=== PATIENT | male | born 1945 | race Caucasian/White ===

== ENCOUNTER → 2024-08-15 15:55 | Outpatient (BNVA) | payer OTHER, SELFPAY | PROVIDERS: Visit Provider Orthopaedic Surgery | DX: M54.9 Dorsalgia, unspecified (principal); M54.50 Low back pain, unspecified; G89.29 Other chronic pain | CPT/HCPCS: 72072; 72110; 99204 ==

== ENCOUNTER → 2024-11-05 08:42 | Outpatient (BNVA) | payer OTHER, SELFPAY | PROVIDERS: Referring Provider Anesthesiology Pain Medicine; Visit Provider Orthopaedic Surgery | DX: M54.41 Lumbago with sciatica, right side (principal); M54.42 Lumbago with sciatica, left side; G89.29 Other chronic pain; M54.9 Dorsalgia, unspecified | CPT/HCPCS: 36415; 72070; 72110; 80053; 81001; 85025; 99214 ==

== ENCOUNTER 2024-11-18 06:39 | Day surgery (SDC) | payer OTHER, SELFPAY ==
[2024-11-18] VITALS (13 sets, daily range): BP systolic 100–174; BP diastolic 45–85; PULSE 56–70; RESP 13–24; TEMP 36.1–36.8; O2SAT 92–99; BMI 27.5
[2024-11-18] MEDS: sodium chloride 0.9% 1,000 ML 30 ML IV (07:00)
--- NOTE | 2024-11-18 08:21 | W.PM.OPSUD ---
Surgery/Procedure H&P Update DATE OF PROCEDURE: November 18, 2024 DATE H&P PERFORMED: 11/05/24 H&P UPDATE INFORMATION: I have reviewed H&P completed within last 30 days, I have examined patient prior to procedure and No changes to prior documentation PREOP DIAGNOSIS: Lumbar stenosis with neurogenic claudication PLANNED PROCEDURE: Operation Date: 11/18/24 08:45 Proposed Procedures p Padal revision and placement(Not Applicable) - Braxton Meng DO s Stimulator Exchange Stimulator Generator Exchange(Not Applicable) - Braxton Meng DO
--- NOTE | 2024-11-18 08:45 | ANES.PREANE2 ---
Pre-Anesthetic Assessment Height/Weight: Height 1.91 m Weight 99.79 kg Temp Pulse Resp BP Pulse Ox O2 Del Method 97.0 F L 63 17 125/79 93 Room Air 11/18/24 11:17 11/18/24 11:30 11/18/24 11:51 11/18/24 11:30 11/18/24 11:30 11/18/24 11:30 Preop Diagnosis: Lumbar stenosis with neurogenic claudication Operation Date: 11/18/24 08:45 Proposed Procedures p Padal revision and placement(Not Applicable) - Braxton Meng DO s Stimulator Exchange Stimulator Generator Exchange(Not Applicable) - Braxton Meng DO Familial anesthetic complications: None Last intake: Intake Last Liquid Date 11/17/24 Last Liquid Time 17:00 Last Solid Date 11/17/24 Last Solid Time 20:00 Exam alert, oriented x 3, clear to auscultation bilaterally and regular rate & rhythm CV/HEM Hypertension Anesthetic Plan ASA status: 2 Anesthesia: General Risk of > 500 ml blood loss (7ml/kg in children): No Medications/Allergies Home Medications Medication Instructions Recorded Confirmed Last Taken Type ibuprofen 800 mg PO DAILY PRN Pain 11/14/24 11/14/24 Unknown History losartan 100 mg PO DAILY 11/14/24 11/18/24 11/17/24 History hydrocodone 5 mg-acetaminophen 325 1 - 2 tab PO .Q4-6H #40 tabs 11/18/24 Unknown Rx mg tablet Allergies Allergy/AdvReac Type Severity Reaction Status Date / Time No Known Allergies Allergy Unverified 08/15/24 16:12 [facility] Anesthesia Social History Smoking and tobacco/nicotine status: never used tobacco/nicotine Data Anesthesia Cardiac Studies: No Data to Display
[2024-11-18] MEDS: ceFAZolin 2,000 mg SDV 2000 MG IVP (09:00)
[2024-11-18] MEDS: VANCOMYCIN ADD-Vantage 1,000 MG VIAL 1000 MG XX (09:32)
[2024-11-18] MEDS: lidocaine-epi 1% 20 mL INJ INJECTION (09:32)
--- NOTE | 2024-11-18 10:21 | XR_ITS ---
WS: [id number] C-ARM RADIOGRAPHS THORACIC SPINE; 3 IMAGES HISTORY: OR PICS COMPARISON: None available. Intraoperative imaging during orthopedic procedure. There is a dorsal column stimulator present. This procedure may have been a revision as the electrodes appear different. XR/XR thoracic spine 2V [id number] IMPRESSION: Intraoperative imaging during orthopedic procedure.
--- NOTE | 2024-11-18 10:41 | PM.OP ---
Operative Report Date of procedure: November 18, 2024 Pre-op diagnosis: Lumbar stenosis with neurogenic claudication Post-op diagnosis: same Procedure done: 1. Removal of percutaneous neurostimulator leads 2. Removal of neurostimulator battery 3. Placement of neurostimulator paddle with laminectomy 4. Placement of new neurostimulator battery Surgeon: Braxton Meng DO Estimated blood loss (mL): 10 Procedure: 1. Removal of percutaneous neurostimulator leads 2. Removal of neurostimulator battery 3. Placement of neurostimulator paddle with laminectomy 4. Placement of new neurostimulator battery Patient was brought to the op suite after undergoing anesthesia was placed in the prone position. All areas impingement well-padded. Patient's prepped draped in also fashion. Skin incisions made over the battery. The battery is identified and removed. One of the leads going to the battery was frayed. The battery was then removed wires were cut. Next attention was brought to where the percutaneous leads were placed. They are sutured into the soft tissue. The incision points. Identified and removed the percutaneous leads were then pulled. These wires were then pulled through and all the wires were removed. Next tension was brought to placing the neurostimulator paddle. This was done by identifying the T9-10 level. This was done under C-arm guidance. The subperiosteal dissection was made down the spinous process after cutting through the thoracolumbar fascia and out to the transverse processes of T9-T10. Laminectomy was done at T9 and this was done by using a rongeur. The rongeur was used to take down the spinous process. Laminectomies were using high-speed bur curved curettes and Kerrison rongeurs. Ligamentum flavum was taken down. Next the passer was used the next the neurostimulator paddle was placed. Was taken over to the left side slightly. They were try to get it to do more of a laminectomy on the right but it would not pass on the right side as far as I like however we did get it up to the T7 vertebrae more just slightly to the left side. This point AP lateral fluoroscopy ensured where the position of bowel was. Next the wires were sutured to the spinous process of T10. Next tension was brought to placing the battery in the pouch. The incision that was already open for the previous battery the wire passer was passed subcu to the location of the laminectomy site. Wires were then passed through. And then attached to the battery. They are all found to be functional. Batteries then placed back into the wound where the battery pouch was made. Wounds were then irrigated vancomycin powder was placed and wounds were closed in layered fashion with Vicryl and Monocryl suture. Sterile dressings were applied patient was transferred to the PACU in stable condition.
[2024-11-18] MEDS: fentaNYL 50 mcg/mL INJ 2mL IVP (11:00)
[2024-11-18] MEDS: morphine 4 mg/mL SDV 1 mL IVP (11:51)
[2024-11-18] MEDS: HYDROcodone-acetaminophen 5-325 mg Tablet 1 TAB PO (11:52)
--- NOTE | 2024-11-18 12:30 | ANE.PACU2 ---
Inpatient post-anesthesia follow up: Airway intact: Yes Vital signs: Temperature 97.0 F Pulse Rate 63 Respiratory Rate 17 Blood Pressure 125/79 Pulse Oximetry 93 Oxygen Delivery Me thod Room Air Oxygen Flow Rate Fraction of Inspir ed Oxygen Hydration adequate: Yes Nausea and vomiting: No Pain level: 1 Mental status: Baseline
== END 2024-11-18 12:30 | disposition home or self-care (01) ==
PROVIDERS: PCP Family Medicine; Visit Provider Orthopaedic Surgery
PROC: (CPT 63685; principal; 2024-11-18 08:05)
PROC: (CPT 63664; 2024-11-18 08:05)
DX: M48.062 Spinal stenosis, lumbar region with neurogenic claudication (principal); I10 Essential (primary) hypertension; Z79.899 Other long term (current) drug therapy
CPT/HCPCS: 63664; 63688; 72070; 76000; C1778; C1820; J0131; J0690; J1100; J2270; J2405; J2704; J2710; J3010; J3370; J3490; J7030

== ENCOUNTER → 2024-12-03 08:26 | Outpatient (BNVA) | payer OTHER, SELFPAY | PROVIDERS: PCP Family Medicine; Visit Provider Orthopaedic Surgery | DX: Z48.89 Encounter for other specified surgical aftercare (principal) | CPT/HCPCS: 99024 ==

== ENCOUNTER → 2025-02-04 07:42 | Outpatient (BNVA) | payer OTHER, SELFPAY | PROVIDERS: PCP Family Medicine; Referring Provider Family Medicine; Visit Provider Nurse Practitioner Family | DX: M54.16 Radiculopathy, lumbar region (principal) | CPT/HCPCS: 99214 ==

== ENCOUNTER → 2025-02-11 12:26 | Outpatient (BNVA) | payer OTHER, SELFPAY | PROVIDERS: PCP Family Medicine; Visit Provider Nurse Practitioner Family | DX: M79.10 Myalgia, unspecified site (principal); M54.16 Radiculopathy, lumbar region | CPT/HCPCS: 20553; 99214; J1010; J3490 ==

== ENCOUNTER → 2025-02-26 09:22 | Outpatient (BNVA) | payer OTHER, SELFPAY | PROVIDERS: PCP Family Medicine; Visit Provider Nurse Practitioner Family | DX: M54.16 Radiculopathy, lumbar region (principal) | CPT/HCPCS: 99214 ==

== ENCOUNTER → 2025-03-26 09:31 | Outpatient (BNVA) | payer OTHER, SELFPAY | PROVIDERS: PCP Family Medicine; Visit Provider Nurse Practitioner Family | DX: M54.50 Low back pain, unspecified (principal); M54.9 Dorsalgia, unspecified; M54.16 Radiculopathy, lumbar region | CPT/HCPCS: 99214 ==

== ENCOUNTER 2025-04-02 07:40 | Outpatient (CLI) | payer OTHER, SELFPAY ==
--- NOTE | 2025-04-02 08:00 | CTR_ITS ---
PROCEDURE INFORMATION: Exam: CT Lumbar Spine With Contrast Exam date and time: 04/02/2025 8:38 AM Age: 79 years old Clinical indication: Low back pain; Prior surgery; Surgery date: 6+ months; Surgery type: Nerve stimulator; Additional info: M54.50 - low back pain, unspecified TECHNIQUE: Imaging protocol: Computed tomography of the lumbar spine with contrast. Radiation optimization: All CT scans at this facility use at least one of these dose optimization techniques: automated exposure control; mA and/or kV adjustment per patient size (includes targeted exams where dose is matched to clinical indication); or iterative reconstruction. Contrast material: OMNI 350; Contrast volume: 100 ml; Contrast route: INTRAVENOUS (IV); COMPARISON: CR XR lumbar spine min 4V [id number] 11/05/2024 8:48 AM RADIATION DOSE METRICS: Total DLP (mGy-cm): 628.04 FINDINGS: Bones/joints: There is widening of the disc spaces at L2-L3 and at L4-L5. Large cysts or erosions are present at the abutting endplates. The findings could all be due to degenerative disc disease but osteomyelitis and discitis could be present. MR recommended for further evaluation. Disc space narrowing and spurring L3-L4 and L5-S1. Partial lumbarization of S1. Soft tissues: Unremarkable. CT/CT lumbar spine w con [id number] IMPRESSION: Extensive degenerative disc disease with findings at 2 levels that could represent discitis and osteomyelitis. MR recommended for further evaluation.
[2025-04-02] MEDS: iohexol 350 mg/mL 500 mL Btl (per mL) IV (08:44)
[2025-04-02 08:47] LABS: Blood Urea Nitrogen 7 mg/dL (8-23)
== END 2025-04-02 07:41 | disposition home or self-care (01) ==
PROVIDERS: Radiology Diagnostic Radiology; PCP Family Medicine; Visit Provider Nurse Practitioner Family
DX: M51.369 Other intervertebral disc degeneration, lumbar region without mention of lumbar back pain or lower extremity pain (principal); R93.7 Abnormal findings on diagnostic imaging of other parts of musculoskeletal system; M85.68 Other cyst of bone, other site; M51.379 Other intervertebral disc degeneration, lumbosacral region without mention of lumbar back pain or lower extremity pain; M25.78 Osteophyte, vertebrae
CPT/HCPCS: 72132; 82565; 84520

== ENCOUNTER → 2025-04-07 09:03 | Outpatient (BNVA) | payer OTHER, SELFPAY | PROVIDERS: PCP Family Medicine; Visit Provider Nurse Practitioner Family | DX: M54.16 Radiculopathy, lumbar region (principal) | CPT/HCPCS: 99214 ==

== ENCOUNTER → 2025-07-08 08:02 | Outpatient (BNVA) | payer OTHER, SELFPAY | PROVIDERS: PCP Family Medicine; Visit Provider Nurse Practitioner Family | DX: M54.9 Dorsalgia, unspecified (principal); M54.16 Radiculopathy, lumbar region | CPT/HCPCS: 99214 ==

== ENCOUNTER → 2025-07-23 09:13 | Outpatient (BNVA) | payer OTHER, SELFPAY | PROVIDERS: PCP Family Medicine; Visit Provider Anesthesiology Pain Medicine | DX: M47.816 Spondylosis without myelopathy or radiculopathy, lumbar region (principal) | CPT/HCPCS: 64493; 64494; 64495; J3490; J9999 ==

== ENCOUNTER → 2025-08-06 09:40 | Outpatient (BNVA) | payer OTHER, SELFPAY | PROVIDERS: PCP Family Medicine; Visit Provider Nurse Practitioner Family | DX: M25.561 Pain in right knee (principal); M25.571 Pain in right ankle and joints of right foot; M54.16 Radiculopathy, lumbar region; M54.9 Dorsalgia, unspecified | CPT/HCPCS: 73562; 73610; 99214 ==

== ENCOUNTER 2025-08-12 06:39 | Outpatient (CLI) | payer OTHER, SELFPAY ==
--- NOTE | 2025-08-12 07:00 | CT_ITS ---
WS: [id number] CT LUMBAR SPINE, noncontrast. HISTORY: M54.16 - Radiculopathy, lumbar region TECHNIQUE: Contiguous 2.0 mm axial imaging are performed. Sagittal and coronal reformats are submitted and reviewed. All CT scans at [facility] use at least one of these dose optimization techniques: automated exposure control; mA and/or kV adjustment per patient size (includes targeted exams where dose is matched to clinical indication); or iterative reconstruction. IV contrast: None DLP: 615.37 mGy.cm COMPARISON: 04/02/2025 Retrolisthesis of L2 and L3 by 3 to 4 mm. L4 retrolisthesis by 2 mm. Severe degenerative disc space narrowing and desiccation throughout the lumbar spine. Erosions and mild osseous destruction along the endplates of L2-3 and L4-5 are similar to the prior study. No obvious progression. Numerous erosions and cystic changes are noted within the vertebral bodies from L2-L5. Severe disc space narrowing with bone upon bone at L3-4. These changes are very similar to the prior examination from 04/02/2025. No obvious progression. No inflammatory changes surrounding the vertebral bodies. L1-2: Asymmetric LEFT disc bulging. Bilateral foraminal osteophytes. Mild LEFT foraminal stenosis. L2-3: Diffuse annular disc bulging with osteophytic ridging and facet arthritis. Central and bilateral foraminal stenosis. L3-4: Osteophytic ridging with facet arthritis. LEFT foraminal broad-based disc protrusion. Bilateral foraminal and subarticular recess stenosis. L4-5: Diffuse osteophytic ridging. LEFT foraminal disc protrusion. Facet joint arthritis. Moderate central, subarticular recess and foraminal stenosis. L5-S1: Osteophytic ridging with severe facet arthritis. Moderate to severe bilateral foraminal stenosis. Bilateral adrenal gland nodules are stable. LEFT adrenal gland nodule is larger at 1.3 cm. Perinephric stranding. LEFT renal cyst 2.[address]/CT lumbar spine wo con* [id number] IMPRESSION: 1. Severe degenerative disc disease and spondylosis throughout the lumbar spin e. Most significant disc space narrowing is at L3-4. 2. Endplate erosions and subchondral cystic changes throughout the lumbar spin e. Very similar to the prior study. No inflammatory changes surround the verteb ral bodies or progression. 3. Osteophytic ridging with asymmetric disc bulging and facet arthritis at mul tiple levels causing stenosis. 4. Moderate to severe bilateral foraminal stenosis at L5-S1. 5. Central and bilateral foraminal stenosis at L2-3. 6. Broad-based disc protrusion at L3-4. Bilateral foraminal subarticular reces s stenosis. 7. Moderate central, subarticular recess and foraminal stenosis at L4-5.
== END 2025-08-12 06:40 | disposition home or self-care (01) ==
LOC: RAD 06:40
PROVIDERS: PCP Family Medicine; Visit Provider Nurse Practitioner Family
DX: M54.16 Radiculopathy, lumbar region (principal); M51.369 Other intervertebral disc degeneration, lumbar region without mention of lumbar back pain or lower extremity pain; R93.7 Abnormal findings on diagnostic imaging of other parts of musculoskeletal system; M25.78 Osteophyte, vertebrae; M47.896 Other spondylosis, lumbar region; M48.061 Spinal stenosis, lumbar region without neurogenic claudication; M48.07 Spinal stenosis, lumbosacral region; M51.26 Other intervertebral disc displacement, lumbar region; M43.16 Spondylolisthesis, lumbar region; M47.897 Other spondylosis, lumbosacral region; E27.8 Other specified disorders of adrenal gland; N28.1 Cyst of kidney, acquired; I70.0 Atherosclerosis of aorta
CPT/HCPCS: 72131

== ENCOUNTER → 2025-08-20 10:45 | Outpatient (BNVA) | payer OTHER, SELFPAY | PROVIDERS: PCP Family Medicine; Visit Provider Anesthesiology Pain Medicine | DX: M47.816 Spondylosis without myelopathy or radiculopathy, lumbar region (principal) | CPT/HCPCS: 64493; 64494; 64495; J3490; J9999 ==

== ENCOUNTER → 2025-08-27 09:52 | Outpatient (BNVA) | payer OTHER, SELFPAY | PROVIDERS: PCP Family Medicine; Visit Provider Nurse Practitioner Family | DX: M54.16 Radiculopathy, lumbar region (principal); M54.9 Dorsalgia, unspecified | CPT/HCPCS: 99214 ==

== ENCOUNTER → 2025-09-03 09:19 | Outpatient (BNVA) | payer OTHER, SELFPAY | PROVIDERS: PCP Family Medicine; Visit Provider Anesthesiology Pain Medicine | DX: M47.816 Spondylosis without myelopathy or radiculopathy, lumbar region (principal) | CPT/HCPCS: 64635; 64636; J1100; J9999 ==

== ENCOUNTER → 2025-09-17 10:12 | Outpatient (BNVA) | payer OTHER, SELFPAY | PROVIDERS: PCP Family Medicine; Visit Provider Anesthesiology Pain Medicine | DX: M47.816 Spondylosis without myelopathy or radiculopathy, lumbar region (principal) | CPT/HCPCS: 64635; 64636; J1010; J9999 ==

== ENCOUNTER → 2025-09-30 08:51 | Outpatient (BNVA) | payer OTHER, SELFPAY | PROVIDERS: PCP Family Medicine; Visit Provider Anesthesiology Pain Medicine | DX: M54.9 Dorsalgia, unspecified (principal); M54.16 Radiculopathy, lumbar region; Z87.891 Personal history of nicotine dependence | CPT/HCPCS: 99214 ==